=== PATIENT | male | born 1970 | race Caucasian/White ===

== ENCOUNTER 2022-03-13 08:18 | Emergency (ER) | payer SELFPAY ==
[2022-03-13] MEDS ORDERED: Aspirin 81 MG Tab.Chew PO ONE (09:05)
[2022-03-13] MEDS ORDERED: Metoprolol Tartrate 25 MG Tab PO ONE (10:32)
== END 2022-03-13 10:59 | disposition home or self-care (01) ==
LOC: JD.ED 08:18
DX: R00.0 Tachycardia, unspecified (principal); I10 Essential (primary) hypertension; Z20.822 Contact with and (suspected) exposure to COVID-19
CPT/HCPCS: 36415; 71045; 80053; 80306; 81003; 83735; 84443; 84484; 85025; 85379; 87635; 93005; 99285; A9270; U0002